=== PATIENT | male | born 1945 | race Caucasian/White ===

== ENCOUNTER 2016-10-06 08:11 | Inpatient (IN) | payer MEDICARE, MEDICAID ==
[~2016-10-06] VITALS: Ht 172.7 cm; Wt 76.2 kg
[~2016-10-06 08:11] MED LIST: ALBU2.5V13 IH; ALBU6.7H INH; ATOR10TA69 PO; DILT180C69 PO; FINA5TAB3 PO; FURO20TA4 PO; LISI2.5T47 PO; SPIR25TA4 PO; TADA20TA31 PO; TAMS0.4C31 PO; TRAM50TA3 PO; TRAZ-129 PO; WARF4TAB40 PO
[2016-10-06] MEDS ORDERED: IPRATROPIUM BROMIDE (0.02%) 0.5MG/2.5ML NEB HHN STA (08:38)
[2016-10-06] MEDS ORDERED: METHYLPREDNISOLONE SOD SUCC 125 MG/2 ML VIAL IV STA (08:38)
[2016-10-06] MEDS ORDERED: ALBUTEROL (0.083%) 2.5MG/3ML NEB HHN STA ×2 (08:38→10:32)
[2016-10-06] MEDS ORDERED: ALBUTEROL (0.5%) 2.5MG/0.5ML NEB HHN ONE (08:50)
[2016-10-06 08:52] LABS: BASOPHILS % 0.5 % (0.0-2.0); HEMATOCRIT. 37.1 % (42.0-52.0); HEMOGLOBIN. 12.7 g/dL (14.0-18.0); LYMPHOCYTES % 13.1 % (20.0-50.0); MEAN CORPUSCULAR HEMOGLOBIN 26.8 pg (28.0-32.0); MEAN CORPUSCULAR VOLUME 78.5 fL (80.0-94.0); MEAN PLATELET VOLUME 8.3 fl (7.4-10.4); MONOCYTES % 5.6 % (2.0-8.0); NEUTROPHILS % 79.8 % (40.0-76.0); PLATELET 146 x1000/uL (130-400); RED BLOOD CELL COUNT 4.72 mill/uL (4.7-6.1); RED CELL DISTRIBUTION WIDTH 12.9 % (11.6-14.6)
[2016-10-06 09:01] LABS: D-DIMER 0.29 mg/L FEU (<0.50); INR 1.5; PROTHROMBIN TIME 15.4 sec (9.4-11.6)
[2016-10-06 09:07] LABS: CARBON DIOXIDE 29 mEq/L (21-32); CHLORIDE 99 mEq/L (98-107)
[2016-10-06 09:09] LABS: TROPONIN I < 0.02 ng/mL (0.00-0.04)
[2016-10-06 09:12] LABS: BG BASE EXCESS 3.1 mmol/L (-2.0-2.0); BG CARBOXYHEMOGLOBIN 0.4 % (0.5-1.5); BG DEOXYHEMOGLOBIN 5.3 % (0.0-5.0); BG HCO3 ACT 28.5 mmol/L (22.0-26.0); BG METHEMOGLOBIN 0.2 % (0.0-1.5); BG OXYGEN SATURATION 94.7 % (92.0-98.5); BG OXYHEMOGLOBIN 94.1 % (94.0-97.0); BG PCO2 46.6 mmHg (35.0-45.0); BG PH 7.404 (7.350-7.450); BG PO2 74.9 mmHg (75.0-100.0); BG SAMPLE SITE RIGHT RADIAL; BG TOTAL HEMOGLOBIN 13.1 g/dL (12.0-18.0); BG VENT MODE ROOM AIR
[2016-10-06] MEDS ORDERED: ASPIRIN 81MG TABLET PO ONE (11:15)
[2016-10-06 13:34] VITALS: BP 109/55
[2016-10-06] MEDS ORDERED: ACETAMINOPHEN 325MG TABLET PO PRN (14:15)
[2016-10-06] MEDS ORDERED: IPRATROPIUM/ALBUTEROL 0.5-3(2.5)MG/3ML NEB INH PRN (14:15)
[2016-10-06] MEDS ORDERED: LORAZEPAM 0.5MG TABLET PO PRN (14:15)
[2016-10-06] MEDS ORDERED: ONDANSETRON HCL 4MG/2ML VIAL IV PRN (14:15)
[2016-10-06] MEDS ORDERED: DOCUSATE SODIUM 100MG CAPSULE PO PRN (14:15)
[2016-10-06] MEDS ORDERED: TRAMADOL 50MG TABLET PO PRN (14:15)
[2016-10-06] MEDS ORDERED: GABA-529 PO (14:40)
[2016-10-06] MEDS ORDERED: MECL-109 PO (14:41)
[2016-10-06] MEDS ORDERED: METF500T4 PO (14:42)
[2016-10-06] MEDS ORDERED: TRAZ-129 PO (14:43)
[2016-10-06] MEDS ORDERED: PREG50CA PO (14:44)
[2016-10-06 16:00] VITALS: BP 117/60
[2016-10-06] MEDS: LISINOPRIL 2.5MG TABLET PO SCH (16:18)
[2016-10-06] MEDS: SILDENAFIL CITRATE 20MG TABLET PO SCH ×2 (16:19→21:17)
[2016-10-06] MEDS: DILTIAZEM HCL 180MG CAPSULE CD 24HR PO SCH ×2 (16:19→21:35)
[2016-10-06] MEDS: FINASTERIDE 5MG TABLET PO SCH (16:19)
[2016-10-06] MEDS: FUROSEMIDE 20MG TABLET PO SCH (16:19)
[2016-10-06] MEDS: SPIRONOLACTONE 25MG TABLET PO SCH (16:20)
[2016-10-06] MEDS: TAMSULOSIN HCL 0.4MG SR CAPSULE PO SCH (16:20)
[2016-10-06] MEDS ORDERED: DEXTROSE 50% WATER 50ML SYRINGE IV PRN ×2 (17:30→22:00)
[2016-10-06] MEDS: BLOOD SUGAR DIAGNOSTIC STRIP TEST SCH ×2 (17:40→21:17)
[2016-10-06] MEDS: WARFARIN SODIUM 4MG TABLET PO SCH (19:05)
[2016-10-06] MEDS: INSULIN LISPRO 100 UNITS/ML SUBCUT SCH ×2 (19:33→21:36)
[2016-10-06 20:00] VITALS: BP 115/54
[2016-10-06] MEDS: TRAZODONE HCL 50MG TABLET PO SCH (21:17)
[2016-10-06] MEDS: ATORVASTATIN CALCIUM 10MG TABLET PO SCH (21:17)
[2016-10-06] MEDS ORDERED: INSULIN DETEMIR UD 100 UNITS/ML SYR SUBCUT NR (23:00)
[2016-10-06 23:30] LABS: CREATINE KINASE 35 IU/L (39-308); CREATINE KINASE MB FRACTION 0.8 ng/mL (0.5-3.6); TROPONIN I < 0.02 ng/mL (0.00-0.04)
[2016-10-07] VITALS: BP_SYST 114; BP_SYST 98; BP_DIAS 56; BP_DIAS 62
[2016-10-07 03:33] LABS: CLARITY URINE CLEAR (CLEAR); COLOR URINE YELLOW (YELLOW); GLUCOSE URINE 3+ (NEGATIVE); KETONES URINE NEGATIVE (NEGATIVE); LEUKOCYTE ESTERASE URINE NEGATIVE (NEGATIVE); NITRITE URINE NEGATIVE (NEGATIVE); OCCULT BLOOD URINE NEGATIVE (NEGATIVE); PH URINE 6.5 (4.5-8.0); PROTEIN URINE NEGATIVE (NEGATIVE); SPECIFIC GRAVITY URINE 1.023 (1.005-1.030)
[2016-10-07 04:00] VITALS: BP 91/52
[2016-10-07] MEDS: BLOOD SUGAR DIAGNOSTIC STRIP TEST SCH ×4 (06:44→21:22)
[2016-10-07] MEDS: SILDENAFIL CITRATE 20MG TABLET PO SCH ×3 (06:48→21:29)
[2016-10-07 08:00] VITALS: BP 112/57
[2016-10-07 08:00] LABS: CREATINE KINASE 39 IU/L (39-308); CREATINE KINASE MB FRACTION 0.7 ng/mL (0.5-3.6); TROPONIN I < 0.02 ng/mL (0.00-0.04)
[2016-10-07] MEDS: LISINOPRIL 2.5MG TABLET PO SCH (09:00)
[2016-10-07] MEDS: DILTIAZEM HCL 180MG CAPSULE CD 24HR PO SCH ×2 (09:00→21:00)
[2016-10-07] MEDS: SPIRONOLACTONE 25MG TABLET PO SCH (09:17)
[2016-10-07] MEDS: TAMSULOSIN HCL 0.4MG SR CAPSULE PO SCH (09:17)
[2016-10-07] MEDS: INSULIN LISPRO 100 UNITS/ML SUBCUT SCH ×4 (09:18→21:00)
[2016-10-07 09:55] LABS: HEMATOCRIT. 35.7 % (42.0-52.0); HEMOGLOBIN. 12.2 g/dL (14.0-18.0); MEAN CORPUSCULAR HEMOGLOBIN 27.1 pg (28.0-32.0); MEAN CORPUSCULAR VOLUME 78.9 fL (80.0-94.0); MEAN PLATELET VOLUME 9.5 fl (7.4-10.4); PLATELET 139 x1000/uL (130-400); RED BLOOD CELL COUNT 4.52 mill/uL (4.7-6.1); RED CELL DISTRIBUTION WIDTH 13.2 % (11.6-14.6)
[2016-10-07 10:11] LABS: CARBON DIOXIDE 22 mEq/L (21-32); CHLORIDE 100 mEq/L (98-107); HDL CHOLESTEROL 48 mg/dL (40-59); LDL CHOLESTEROL 41 mg/dL (5-100); TROPONIN I < 0.02 ng/mL (0.00-0.04)
[2016-10-07 11:51] LABS: T4 FREE 1.35 ng/dL (0.76-1.46)
[2016-10-07 11:51] LABS: INR 1.6
[2016-10-07 12:00] VITALS: BP 106/52
[2016-10-07] MEDS ORDERED: MAGNESIUM 2 G PREMIX 50 ML IV SCH (12:00)
[2016-10-07] MEDS: FUROSEMIDE 20MG TABLET PO SCH (12:47)
[2016-10-07] MEDS: FINASTERIDE 5MG TABLET PO SCH (12:47)
[2016-10-07] MEDS: LEVOFLOXACIN 500MG PREMIX 100 ML IV SCH (15:26)
[2016-10-07 16:00] VITALS: BP 101/46
[2016-10-07] MEDS: WARFARIN SODIUM 4MG TABLET PO SCH (18:11)
[2016-10-07 19:56] VITALS: BP_SYST 107; BP_SYST 96; BP_SYST 99; BP_DIAS 58; BP_DIAS 59; BP_DIAS 62
[2016-10-07] MEDS: ATORVASTATIN CALCIUM 10MG TABLET PO SCH (21:22)
[2016-10-07] MEDS: GUAIFENESIN 600MG ER TABLET PO SCH (21:22)
[2016-10-07] MEDS: TRAZODONE HCL 50MG TABLET PO SCH (21:22)
[2016-10-07] MEDS ORDERED: INSULIN DETEMIR UD 100 UNITS/ML SYR SUBCUT SCH (22:00)
[2016-10-07 22:55] LABS: PLATELET ESTIMATE NORMAL
[2016-10-08] VITALS: BP 99/62
[2016-10-08 04:00] VITALS: BP 117/59
[2016-10-08] MEDS: SILDENAFIL CITRATE 20MG TABLET PO SCH ×2 (05:37→13:41)
[2016-10-08] MEDS: BLOOD SUGAR DIAGNOSTIC STRIP TEST SCH ×2 (05:37→13:29)
[2016-10-08] MEDS: INSULIN LISPRO 100 UNITS/ML SUBCUT SCH ×2 (05:38→13:38)
[2016-10-08 05:58] LABS: PROTHROMBIN TIME 20.6 sec (9.4-11.6)
[2016-10-08 06:28] LABS: HEMATOCRIT. 35.8 % (42.0-52.0); HEMOGLOBIN. 12.3 g/dL (14.0-18.0); MEAN CORPUSCULAR HEMOGLOBIN 26.8 pg (28.0-32.0); MEAN CORPUSCULAR VOLUME 78.1 fL (80.0-94.0); MEAN PLATELET VOLUME 8.9 fl (7.4-10.4); PLATELET 140 x1000/uL (130-400); RED BLOOD CELL COUNT 4.59 mill/uL (4.7-6.1); RED CELL DISTRIBUTION WIDTH 13.1 % (11.6-14.6)
[2016-10-08 07:03] LABS: CARBON DIOXIDE 25 mEq/L (21-32); CHLORIDE 101 mEq/L (98-107)
[2016-10-08 08:00] VITALS: BP_SYST 112; BP_SYST 121; BP_SYST 99; BP_DIAS 63; BP_DIAS 70; BP_DIAS 82
[2016-10-08] MEDS: LISINOPRIL 2.5MG TABLET PO SCH (09:00)
[2016-10-08] MEDS: TAMSULOSIN HCL 0.4MG SR CAPSULE PO SCH (10:16)
[2016-10-08] MEDS: SPIRONOLACTONE 25MG TABLET PO SCH (10:16)
[2016-10-08] MEDS: FUROSEMIDE 20MG TABLET PO SCH (10:17)
[2016-10-08] MEDS: FINASTERIDE 5MG TABLET PO SCH (10:17)
[2016-10-08] MEDS: GUAIFENESIN 600MG ER TABLET PO SCH (10:17)
[2016-10-08] MEDS: DILTIAZEM HCL 180MG CAPSULE CD 24HR PO SCH (10:58)
[2016-10-08 12:00] VITALS: BP 130/79
[2016-10-08] MEDS: LEVOFLOXACIN 500MG PREMIX 100 ML IV SCH (13:37)
[2016-10-08 14:29] LABS: PLATELET ESTIMATE NORMAL
[2016-10-08 15:13] VITALS: BP 127/72
[2016-10-08 16:00] VITALS: BP 114/71
== END 2016-10-08 17:00 | disposition home or self-care (01) | DRG 291 ==
LOC: ER 08:32 → ENRESERV 09:57 → 7WST 12:25 → EDBEDREQ 12:29 → EDBEDREQTM 12:29
PROVIDERS: ADMIT Internal Medicine; ATTEND Internal Medicine Critical Care Medicine
DX: I11.0 Hypertensive heart disease with heart failure (principal); J18.9 Pneumonia, unspecified organism; I49.5 Sick sinus syndrome; I48.2 Chronic atrial fibrillation; E11.9 Type 2 diabetes mellitus without complications; J44.0 Chronic obstructive pulmonary disease with (acute) lower respiratory infection; Z95.2 Presence of prosthetic heart valve; D72.829 Elevated white blood cell count, unspecified; F41.9 Anxiety disorder, unspecified; I50.9 Heart failure, unspecified; R26.9 Unspecified abnormalities of gait and mobility; R07.89 Other chest pain; J20.9 Acute bronchitis, unspecified; W01.0XXA Fall on same level from slipping, tripping and stumbling without subsequent striking against object, initial encounter; M79.606 Pain in leg, unspecified; I25.10 Atherosclerotic heart disease of native coronary artery without angina pectoris; G47.00 Insomnia, unspecified; E78.00 Pure hypercholesterolemia, unspecified; K21.9 Gastro-esophageal reflux disease without esophagitis; K29.70 Gastritis, unspecified, without bleeding; N40.0 Benign prostatic hyperplasia without lower urinary tract symptoms; Z79.01 Long term (current) use of anticoagulants; Z86.73 Personal history of transient ischemic attack (TIA), and cerebral infarction without residual deficits; Z95.0 Presence of cardiac pacemaker; Z95.1 Presence of aortocoronary bypass graft; Z98.49 Cataract extraction status, unspecified eye; Y93.89 Activity, other specified; Y92.89 Other specified places as the place of occurrence of the external cause; Y99.8 Other external cause status; Z79.51 Long term (current) use of inhaled steroids; Z79.899 Other long term (current) drug therapy; Z79.84 Long term (current) use of oral hypoglycemic drugs
CPT/HCPCS: 36415; 36600; 70450; 71010; 72125; 80048; 80053; 80061; 81001; 82375; 82550; 82553; 82805; 82962; 83036; 83735; 83880; 84439; 84443; 84481; 84484; 85025; 85379; 85610; 87040; 87070; 87086; 93005; 93306; 93970; 96374; 99285; J1815; J1956; J2930; J3475; J7050; J7611

== ENCOUNTER 2017-01-24 12:35 | Inpatient (IN) | payer MEDICARE, MEDICAID ==
[~2017-01-24] VITALS: Ht 172.7 cm; Wt 73.9 kg
[~2017-01-24 12:35] MED LIST changes: +GABA-529 PO; +MECL-109 PO; +METF500T4 PO; +PREG50CA PO
[2017-01-24 17:32] LABS: CHLORIDE 107 mEq/L (98-107); PROTHROMBIN TIME 20.7 sec (9.4-11.6)
[2017-01-24 17:38] LABS: CARBON DIOXIDE 26 mEq/L (21-32)
[2017-01-24 17:39] LABS: BASOPHILS % 0.4 % (0.0-2.0); EOSINOPHILS % 1.7 % (0.0-5.0); HEMATOCRIT. 35.4 % (42.0-52.0); LYMPHOCYTES % 20.5 % (20.0-50.0); MEAN CORPUSCULAR HEMOGLOBIN 26.7 pg (28.0-32.0); MEAN CORPUSCULAR VOLUME 79.1 fL (80.0-94.0); MEAN PLATELET VOLUME 8.8 fl (7.4-10.4); MONOCYTES % 6.7 % (2.0-8.0); NEUTROPHILS % 70.7 % (40.0-76.0); PLATELET 127 x1000/uL (130-400); RED BLOOD CELL COUNT 4.48 mill/uL (4.7-6.1); RED CELL DISTRIBUTION WIDTH 13.8 % (11.6-14.6)
[2017-01-24 17:42] LABS: TROPONIN I < 0.02 ng/mL (0.00-0.04)
[2017-01-24 22:41] VITALS: BP 131/87
[2017-01-24 22:46] VITALS: BP 131/87
[2017-01-24] MEDS ORDERED: ALBUTEROL (0.083%) 2.5MG/3ML NEB HHN SCH (23:00)
[2017-01-24] MEDS ORDERED: ACETAMINOPHEN 325MG TABLET PO PRN (23:00)
[2017-01-24] MEDS: FUROSEMIDE 20MG TABLET PO SCH (23:18)
[2017-01-24] MEDS ORDERED: TRAMADOL 50MG TABLET PO PRN (23:23)
[2017-01-25] MEDS: DILTIAZEM HCL 180MG CAPSULE CD 24HR PO SCH ×3 (00:07→21:19)
[2017-01-25] MEDS: TAMSULOSIN HCL 0.4MG SR CAPSULE PO SCH ×2 (00:07→16:56)
[2017-01-25] MEDS: MECLIZINE 25MG TABLET PO SCH ×4 (00:07→16:56)
[2017-01-25] MEDS: TRAZODONE HCL 50MG TABLET PO SCH ×2 (00:07→21:12)
[2017-01-25] MEDS: LISINOPRIL 2.5MG TABLET PO SCH ×2 (00:07→10:56)
[2017-01-25] MEDS: GABAPENTIN 100MG CAPSULE PO SCH ×4 (00:07→16:56)
[2017-01-25] MEDS: FINASTERIDE 5MG TABLET PO SCH ×2 (00:08→10:56)
[2017-01-25] MEDS: ATORVASTATIN CALCIUM 10MG TABLET PO SCH ×2 (00:09→21:11)
[2017-01-25 00:16] VITALS: BP 125/66
[2017-01-25] MEDS ORDERED: DEXTROSE 50% WATER 50ML SYRINGE IV PRN (00:30)
[2017-01-25] MEDS ORDERED: ALBUTEROL (0.083%) 2.5MG/3ML NEB HHN PRN (00:45)
[2017-01-25 04:00] VITALS: BP 118/57
[2017-01-25] MEDS: SODIUM CHLORIDE 0.9% INJ 3ML FLUSH IVF SCH ×3 (05:41→23:30)
[2017-01-25 07:17] LABS: INR 1.9; PROTHROMBIN TIME 20.1 sec (9.4-11.6)
[2017-01-25 07:33] LABS: BASOPHILS % 0.4 % (0.0-2.0); EOSINOPHILS % 2.1 % (0.0-5.0); HEMATOCRIT. 36.8 % (42.0-52.0); HEMOGLOBIN. 12.3 g/dL (14.0-18.0); LYMPHOCYTES % 21.2 % (20.0-50.0); MEAN CORPUSCULAR HEMOGLOBIN 26.5 pg (28.0-32.0); MEAN CORPUSCULAR VOLUME 79.1 fL (80.0-94.0); MEAN PLATELET VOLUME 9.1 fl (7.4-10.4); MONOCYTES % 8.7 % (2.0-8.0); NEUTROPHILS % 67.6 % (40.0-76.0); PLATELET 126 x1000/uL (130-400); RED BLOOD CELL COUNT 4.65 mill/uL (4.7-6.1); RED CELL DISTRIBUTION WIDTH 13.7 % (11.6-14.6)
[2017-01-25] MEDS: BLOOD SUGAR DIAGNOSTIC STRIP TEST SCH ×4 (07:40→21:24)
[2017-01-25 08:00] VITALS: BP 116/62
[2017-01-25 08:33] LABS: CARBON DIOXIDE 24 mEq/L (21-32); CHLORIDE 107 mEq/L (98-107)
[2017-01-25 08:34] LABS: TROPONIN I < 0.02 ng/mL (0.00-0.04)
[2017-01-25] MEDS: PREGABALIN 50 MG CAPSULE PO SCH ×3 (09:23→16:56)
[2017-01-25] MEDS: SPIRONOLACTONE 25MG TABLET PO SCH (09:24)
[2017-01-25] MEDS: FUROSEMIDE 20MG TABLET PO SCH (09:24)
[2017-01-25] MEDS: INSULIN LISPRO 100 UNITS/ML SUBCUT SCH ×4 (09:32→21:27)
[2017-01-25 12:00] VITALS: BP 128/74
[2017-01-25 16:00] VITALS: BP 102/61
[2017-01-25] MEDS ORDERED: WARFARIN SODIUM 4MG TABLET PO SCH (18:00)
[2017-01-25 20:00] VITALS: BP 123/63
[2017-01-25] MEDS ORDERED: TRAZODONE HCL 50MG TABLET PO SCH (21:00)
[2017-01-25] MEDS ORDERED: WARFARIN SODIUM 4MG TABLET PO ONE (22:45)
[2017-01-25] MEDS ORDERED: MECLIZINE 25MG TABLET PO NR (23:45)
[2017-01-25] MEDS ORDERED: MECLIZINE 25MG TABLET PO ONE (23:45)
[2017-01-26] VITALS: BP 109/45
[2017-01-26 04:00] VITALS: BP 117/47
[2017-01-26] MEDS: BLOOD SUGAR DIAGNOSTIC STRIP TEST SCH ×3 (05:55→17:20)
[2017-01-26] MEDS: SODIUM CHLORIDE 0.9% INJ 3ML FLUSH IVF SCH ×2 (05:55→13:28)
[2017-01-26 07:14] LABS: INR 1.9; PROTHROMBIN TIME 20.2 sec (9.4-11.6)
[2017-01-26 07:44] LABS: BASOPHILS % 0.3 % (0.0-2.0); EOSINOPHILS % 1.5 % (0.0-5.0); HEMATOCRIT. 37.7 % (42.0-52.0); HEMOGLOBIN. 12.6 g/dL (14.0-18.0); LYMPHOCYTES % 17.3 % (20.0-50.0); MEAN CORPUSCULAR HEMOGLOBIN 26.5 pg (28.0-32.0); MEAN PLATELET VOLUME 9.2 fl (7.4-10.4); MONOCYTES % 7.7 % (2.0-8.0); NEUTROPHILS % 73.2 % (40.0-76.0); PLATELET 134 x1000/uL (130-400); RED BLOOD CELL COUNT 4.77 mill/uL (4.7-6.1); RED CELL DISTRIBUTION WIDTH 13.3 % (11.6-14.6)
[2017-01-26 08:00] VITALS: BP 124/71
[2017-01-26 08:00] LABS: CHLORIDE 107 mEq/L (98-107)
[2017-01-26 08:10] LABS: CARBON DIOXIDE 24 mEq/L (21-32)
[2017-01-26] MEDS: DILTIAZEM HCL 180MG CAPSULE CD 24HR PO SCH (09:04)
[2017-01-26] MEDS: SPIRONOLACTONE 25MG TABLET PO SCH (09:04)
[2017-01-26] MEDS: PREGABALIN 50 MG CAPSULE PO SCH ×3 (09:04→17:20)
[2017-01-26] MEDS: LISINOPRIL 2.5MG TABLET PO SCH (09:04)
[2017-01-26] MEDS: FUROSEMIDE 20MG TABLET PO SCH (09:04)
[2017-01-26] MEDS: GABAPENTIN 100MG CAPSULE PO SCH ×3 (09:04→17:20)
[2017-01-26] MEDS: MECLIZINE 25MG TABLET PO SCH ×3 (09:05→17:18)
[2017-01-26] MEDS: INSULIN LISPRO 100 UNITS/ML SUBCUT SCH ×3 (09:05→17:20)
[2017-01-26] MEDS: FINASTERIDE 5MG TABLET PO SCH (11:30)
[2017-01-26 12:00] VITALS: BP 110/64
[2017-01-26 16:44] VITALS: BP 108/71
[2017-01-26] MEDS: TAMSULOSIN HCL 0.4MG SR CAPSULE PO SCH (17:20)
[2017-01-26] MEDS ORDERED: WARFARIN SODIUM 5MG TABLET PO SCH (18:00)
== END 2017-01-26 19:12 | disposition home or self-care (01) | DRG 637 ==
LOC: ER 15:02 → 7WST 17:52 → EDBEDREQ 17:58 → ENRESERV 19:38 → CANRESERV 19:38 → ENRESERV 20:09
PROVIDERS: ADMIT Ophthalmology; ATTEND Internal Medicine
DX: E11.649 Type 2 diabetes mellitus with hypoglycemia without coma (principal); G93.41 Metabolic encephalopathy; E78.00 Pure hypercholesterolemia, unspecified; I48.91 Unspecified atrial fibrillation; I10 Essential (primary) hypertension; J45.909 Unspecified asthma, uncomplicated; Z86.73 Personal history of transient ischemic attack (TIA), and cerebral infarction without residual deficits; Z95.0 Presence of cardiac pacemaker; Z79.899 Other long term (current) drug therapy; Z79.01 Long term (current) use of anticoagulants
CPT/HCPCS: 36415; 70450; 71010; 80048; 80053; 82962; 83690; 84484; 85025; 85610; 93005; 99285; J1815; J8597

== ENCOUNTER 2017-08-31 08:36 | Inpatient (IN) | payer MEDICARE, MEDICAID ==
[~2017-08-31] VITALS: Ht 172.7 cm; Wt 77.6 kg
[~2017-08-31 08:36] MED LIST changes: -METF500T4 PO; +METF500T6 PO; -SPIR25TA4 PO; +SPIR25TA6 PO
[2017-08-31] MEDS ORDERED: OMEP10SU2 PO (08:51)
[2017-08-31] MEDS ORDERED: SULF500T8 PO ×2 (08:51→22:35)
[2017-08-31] MEDS ORDERED: ASPIRIN 81MG TABLET PO ONE (09:15)
[2017-08-31] MEDS: NITROGLYCERIN 0.4MG TABLET SL SL PRN ×2 (09:42→09:43)
[2017-08-31 10:44] LABS: BASOPHILS % 0.4 % (0.0-2.0); EOSINOPHILS % 0.9 % (0.0-5.0); HEMATOCRIT. 28.2 % (42.0-52.0); HEMOGLOBIN. 9.3 g/dL (14.0-18.0); LYMPHOCYTES % 10.4 % (20.0-50.0); MEAN CORPUSCULAR HEMOGLOBIN 25.9 pg (28.0-32.0); MEAN CORPUSCULAR VOLUME 78.3 fL (80.0-94.0); NEUTROPHILS % 79.3 % (40.0-76.0); PLATELET 171 x1000/uL (130-400); RED CELL DISTRIBUTION WIDTH 16.4 % (11.6-14.6)
[2017-08-31 10:50] LABS: CHLORIDE 99 mEq/L (98-107)
[2017-08-31] MEDS ORDERED: METHYLPREDNISOLONE SOD SUCC 125 MG/2 ML VIAL IV ONE (12:30)
[2017-08-31] MEDS ORDERED: CLONIDINE 0.1MG TABLET PO PRN (14:45)
[2017-08-31] MEDS ORDERED: IPRATROPIUM/ALBUTEROL 0.5-3(2.5)MG/3ML NEB INH PRN (14:45)
[2017-08-31] MEDS ORDERED: ACETAMINOPHEN 650MG SUPP PR PRN (14:45)
[2017-08-31] MEDS ORDERED: ACETAMINOPHEN 325MG TABLET PO PRN (14:45)
[2017-08-31 15:00] VITALS: BP 134/76
[2017-08-31] MEDS ORDERED: ONDANSETRON 4MG ODT PO PRN (15:00)
[2017-08-31] MEDS ORDERED: POTASSIUM CHLORIDE 20MEQ TABLET SR PO NR (15:00)
[2017-08-31 15:38] LABS: TOTAL IRON BINDING CAPACITY 330 ug/dL (250-450)
[2017-08-31] MEDS: SPIRONOLACTONE 25MG TABLET PO SCH (16:05)
[2017-08-31] MEDS: LISINOPRIL 2.5MG TABLET PO SCH (16:05)
[2017-08-31] MEDS ORDERED: MECLIZINE 25MG TABLET PO PRN (17:00)
[2017-08-31] MEDS ORDERED: DEXTROSE 50% WATER 50ML SYRINGE IV PRN (17:00)
[2017-08-31] MEDS ORDERED: HYDROCODONE/ACETAMINOPHEN 5/325MG TABLET PO PRN (17:00)
[2017-08-31 17:20] LABS: INR 1.3; PROTHROMBIN TIME 13.4 sec (9.4-11.6)
[2017-08-31] MEDS: FUROSEMIDE 100MG/10ML VIAL IVP SCH (17:31)
[2017-08-31] MEDS: BLOOD SUGAR DIAGNOSTIC STRIP TEST SCH ×2 (17:31→21:08)
[2017-08-31] MEDS: INSULIN LISPRO 100 UNITS/ML SUBCUT SCH ×2 (17:51→21:13)
[2017-08-31] MEDS ORDERED: WARFARIN SODIUM 5MG TABLET PO NR (18:00)
[2017-08-31 20:00] VITALS: BP 135/99
[2017-08-31] MEDS ORDERED: TEMAZEPAM 15MG CAPSULE PO PRN (20:45)
[2017-08-31] MEDS: DOCUSATE SODIUM 100MG CAPSULE PO SCH (21:15)
[2017-08-31] MEDS: DILTIAZEM HCL 90MG CAPSULE SR 12HR PO SCH (21:15)
[2017-08-31] MEDS ORDERED: TRAZ-129 PO (22:35)
[2017-08-31] MEDS ORDERED: OMEP40CA34 PO (22:35)
[2017-08-31] MEDS ORDERED: FURO20TA4 PO (22:35)
[2017-08-31] MEDS ORDERED: TRAM50TA PO (22:35)
[2017-08-31] MEDS ORDERED: ATOR10TA69 PO (22:35)
[2017-08-31] MEDS ORDERED: TAMS0.4C31 PO (22:35)
[2017-08-31] MEDS ORDERED: LYR25 PO (22:35)
[2017-08-31] MEDS ORDERED: [UNRECOGNIZED DRUG - OTHER] PO (22:35)
[2017-08-31] MEDS ORDERED: METF500T6 PO (22:35)
[2017-08-31] MEDS ORDERED: WARF4TAB71 PO (22:35)
[2017-08-31] MEDS ORDERED: LISI-650 PO (22:35)
[2017-08-31] MEDS ORDERED: SPIR25TA6 PO (22:35)
[2017-08-31] MEDS ORDERED: MECL-109 PO (22:35)
[2017-08-31] MEDS ORDERED: FINA5TAB11 PO (22:35)
[2017-09-01] VITALS: BP 119/70
[2017-09-01] MEDS ORDERED: DILTIAZEM HCL 60MG TABLET PO SCH (00:15)
[2017-09-01 00:23] LABS: CREATINE KINASE 75 IU/L (39-308)
[2017-09-01 00:24] LABS: CREATINE KINASE MB FRACTION 2.4 ng/mL (0.5-3.6)
[2017-09-01] MEDS: TAMSULOSIN HCL 0.4MG SR CAPSULE PO SCH ×2 (00:31→09:02)
[2017-09-01 04:00] VITALS: BP 117/81
[2017-09-01] MEDS: BLOOD SUGAR DIAGNOSTIC STRIP TEST SCH ×2 (05:59→11:45)
[2017-09-01] MEDS: INSULIN LISPRO 100 UNITS/ML SUBCUT SCH ×2 (06:10→13:15)
[2017-09-01 06:42] LABS: BASOPHILS % 0.1 % (0.0-2.0); HEMATOCRIT. 28.7 % (42.0-52.0); HEMOGLOBIN. 9.6 g/dL (14.0-18.0); LYMPHOCYTES % 9.1 % (20.0-50.0); MEAN CORPUSCULAR HEMOGLOBIN 25.9 pg (28.0-32.0); MEAN CORPUSCULAR VOLUME 77.4 fL (80.0-94.0); MEAN PLATELET VOLUME 9.6 fl (7.4-10.4); MONOCYTES % 6.8 % (2.0-8.0); PLATELET 188 x1000/uL (130-400); RED BLOOD CELL COUNT 3.71 mill/uL (4.7-6.1); RED CELL DISTRIBUTION WIDTH 16.4 % (11.6-14.6)
[2017-09-01 06:44] LABS: D-DIMER 0.34 mg/L FEU (<0.50); INR 1.4; PROTHROMBIN TIME 15.1 sec (9.4-11.6)
[2017-09-01 07:03] LABS: CHLORIDE 97 mEq/L (98-107)
[2017-09-01 07:14] LABS: LDL CHOLESTEROL 42 mg/dL (5-100)
[2017-09-01 07:15] LABS: CREATINE KINASE 85 IU/L (39-308); CREATINE KINASE MB FRACTION 2.9 ng/mL (0.5-3.6)
[2017-09-01 07:16] LABS: HDL CHOLESTEROL 46 mg/dL (40-59)
[2017-09-01 08:00] VITALS: BP 124/61
[2017-09-01] MEDS ORDERED: FUROSEMIDE 40MG/4ML VIAL IVP SCH (09:00)
[2017-09-01] MEDS ORDERED: FINASTERIDE 5MG TABLET PO SCH (09:00)
[2017-09-01] MEDS ORDERED: POTASSIUM CHLORIDE 20MEQ TABLET SR PO SCH (09:00)
[2017-09-01] MEDS: FUROSEMIDE 100MG/10ML VIAL IVP SCH (09:01)
[2017-09-01] MEDS: DOCUSATE SODIUM 100MG CAPSULE PO SCH (09:02)
[2017-09-01] MEDS: DILTIAZEM HCL 90MG CAPSULE SR 12HR PO SCH (09:04)
[2017-09-01] MEDS: SPIRONOLACTONE 25MG TABLET PO SCH (09:04)
[2017-09-01] MEDS ORDERED: MAGNESIUM 1 G PREMIX 100 ML IV SCH (12:00)
[2017-09-01] MEDS: LISINOPRIL 2.5MG TABLET PO SCH (13:21)
[2017-09-01 16:00] VITALS: BP 123/61
[2017-09-01 16:08] VITALS: BP 123/61
[2017-09-01] MEDS ORDERED: WARFARIN SODIUM 5MG TABLET PO NR (18:00)
== END 2017-09-01 16:45 | disposition home or self-care (01) | DRG 291 ==
LOC: ER 09:32 → EDBEDREQ 12:50 → ENRESERV 13:22 → OBSVTOIN 14:30 → INTOOBSV 14:30 → 5WST 14:30 → EDBEDREQ 14:31
PROVIDERS: ADMIT Internal Medicine; ATTEND Internal Medicine
DX: I11.0 Hypertensive heart disease with heart failure (principal); G93.49 Other encephalopathy; D68.59 Other primary thrombophilia; D64.9 Anemia, unspecified; I50.33 Acute on chronic diastolic (congestive) heart failure; E66.9 Obesity, unspecified; E78.00 Pure hypercholesterolemia, unspecified; E78.5 Hyperlipidemia, unspecified; E87.6 Hypokalemia; I48.2 Chronic atrial fibrillation; I49.5 Sick sinus syndrome; K21.9 Gastro-esophageal reflux disease without esophagitis; K29.70 Gastritis, unspecified, without bleeding; N40.0 Benign prostatic hyperplasia without lower urinary tract symptoms; G90.8 Other disorders of autonomic nervous system; J44.9 Chronic obstructive pulmonary disease, unspecified; E11.65 Type 2 diabetes mellitus with hyperglycemia; I35.9 Nonrheumatic aortic valve disorder, unspecified; Z86.73 Personal history of transient ischemic attack (TIA), and cerebral infarction without residual deficits; Z95.0 Presence of cardiac pacemaker; Z95.3 Presence of xenogenic heart valve; Z79.01 Long term (current) use of anticoagulants; Z79.899 Other long term (current) drug therapy; Z68.26 Body mass index [BMI] 26.0-26.9, adult
CPT/HCPCS: 36415; 70450; 71045; 80053; 80061; 82270; 82550; 82553; 82962; 83540; 83550; 83735; 83880; 84443; 84484; 85025; 85379; 85610; 93005; 93306; 93880; 93970; 96374; 97162; 99285; G0378; J1815; J1940; J2930; J3475; Q0162

== ENCOUNTER 2017-09-03 04:16 | Observation (INO) | payer MEDICARE, MEDICAID ==
[~2017-09-03] VITALS: Ht 175.3 cm; Wt 72.6 kg
[~2017-09-03 04:16] MED LIST changes: +DILT180C66 PO; -DILT180C69 PO; +FINA5TAB11 PO; -FINA5TAB3 PO; +LISI-650 PO; -LISI2.5T47 PO; +LYR25 PO; +OMEP40CA34 PO; -PREG50CA PO; +SULF500T8 PO; +TRAM50TA PO; -TRAM50TA3 PO; -TRAZ-129 PO; +TRAZ-212 PO; -WARF4TAB40 PO; +[UNRECOGNIZED DRUG - OTHER] PO
[2017-09-03] MEDS ORDERED: SODIUM CHLORIDE 0.9% 1,000 ML IV ONE (06:30)
[2017-09-03] MEDS ORDERED: ONDANSETRON HCL 4MG/2ML VIAL IV STA (06:30)
[2017-09-03] MEDS ORDERED: MORPHINE SULFATE 4 MG/ML CPJ (NOT FOR IM USE) IV STA (06:30)
[2017-09-03 07:10] LABS: BASOPHILS % 0.3 % (0.0-2.0); HEMATOCRIT. 28.1 % (42.0-52.0); HEMOGLOBIN. 9.3 g/dL (14.0-18.0); LYMPHOCYTES % 11.1 % (20.0-50.0); MEAN CORPUSCULAR HEMOGLOBIN 25.5 pg (28.0-32.0); MEAN CORPUSCULAR VOLUME 77.3 fL (80.0-94.0); MEAN PLATELET VOLUME 8.7 fl (7.4-10.4); MONOCYTES % 8.2 % (2.0-8.0); NEUTROPHILS % 79.4 % (40.0-76.0); PLATELET 191 x1000/uL (130-400); RED BLOOD CELL COUNT 3.64 mill/uL (4.7-6.1); RED CELL DISTRIBUTION WIDTH 16.4 % (11.6-14.6)
[2017-09-03 07:16] LABS: CHLORIDE 103 mEq/L (98-107)
[2017-09-03 07:19] LABS: INR 2.1; PARTIAL THROMBOPLASTIN TIME 31.7 sec (23.4-31.0); PROTHROMBIN TIME 21.4 sec (9.4-11.6)
[2017-09-03] MEDS ORDERED: SODIUM CHLORIDE 0.9% 1000ML BAG (SEPSIS BOLUS) IV ONE (08:15)
[2017-09-03] MEDS ORDERED: LEVOFLOXACIN 750MG PREMIX 150 ML IV ONE (08:15)
[2017-09-03 09:05] LABS: CLARITY URINE CLEAR (CLEAR); COLOR URINE YELLOW (YELLOW); KETONES URINE NEGATIVE (NEGATIVE); LEUKOCYTE ESTERASE URINE NEGATIVE (NEGATIVE); NITRITE URINE NEGATIVE (NEGATIVE); OCCULT BLOOD URINE NEGATIVE (NEGATIVE); PH URINE 7.5 (4.5-8.0); PROTEIN URINE NEGATIVE (NEGATIVE); SPECIFIC GRAVITY URINE 1.013 (1.005-1.030)
[2017-09-03 10:10] VITALS: BP 150/71
[2017-09-03 10:34] VITALS: BP 150/71
[2017-09-03 12:00] VITALS: BP 142/85
[2017-09-03] MEDS ORDERED: DIPHENHYDRAMINE 50MG/ML VIAL IV PRN (12:30)
[2017-09-03] MEDS ORDERED: DEXTROSE 50% WATER 50ML SYRINGE IV PRN (12:30)
[2017-09-03] MEDS ORDERED: ONDANSETRON HCL 4MG/2ML VIAL IV PRN (12:30)
[2017-09-03] MEDS ORDERED: ACETAMINOPHEN 325MG TABLET PO PRN (12:30)
[2017-09-03] MEDS ORDERED: IPRATROPIUM/ALBUTEROL 0.5-3(2.5)MG/3ML NEB INH PRN (12:30)
[2017-09-03] MEDS ORDERED: NA PHOS,M-B/NA PHOS,DI-BA ENEMA 118ML PR PRN (12:30)
[2017-09-03] MEDS: BLOOD SUGAR DIAGNOSTIC STRIP TEST SCH ×2 (12:43→17:29)
[2017-09-03] MEDS ORDERED: MECLIZINE 25MG TABLET PO PRN (12:45)
[2017-09-03] MEDS ORDERED: DILTIAZEM HCL 60MG TABLET PO SCH (12:45)
[2017-09-03] MEDS: HYDROCODONE/ACETAMINOPHEN 5/325MG TABLET PO PRN ×2 (12:56→17:44)
[2017-09-03] MEDS: INSULIN LISPRO 100 UNITS/ML SUBCUT SCH ×2 (12:57→17:46)
[2017-09-03] MEDS ORDERED: FINASTERIDE 5MG TABLET PO SCH (13:00)
[2017-09-03] MEDS ORDERED: TAMSULOSIN HCL 0.4MG SR CAPSULE PO SCH (13:00)
[2017-09-03] MEDS ORDERED: HALOPERIDOL 0.5MG TABLET PO PRN (13:00)
[2017-09-03 16:00] VITALS: BP 106/55
[2017-09-03] MEDS ORDERED: FUROSEMIDE 40MG/4ML VIAL IVP SCH (17:15)
[2017-09-03] MEDS ORDERED: WARFARIN SODIUM 5MG TABLET PO NR (18:00)
[2017-09-03] MEDS ORDERED: METFORMIN HCL 500MG TABLET PO SCH (18:10)
[2017-09-03 19:19] VITALS: BP 106/55
[2017-09-03 20:00] VITALS: BP 132/69
[2017-09-03] MEDS ORDERED: DILTIAZEM HCL 180MG CAPSULE CD 24HR PO SCH (21:00)
[2017-09-03] MEDS ORDERED: TRAZODONE HCL 50MG TABLET PO SCH (21:00)
[2017-09-03] MEDS ORDERED: ATORVASTATIN CALCIUM 10MG TABLET PO SCH (21:00)
[2017-09-04] MEDS ORDERED: OMEPRAZOLE 20MG CAPSULE EXTENDED RELEASE PO SCH (07:40)
[2017-09-04] MEDS ORDERED: SPIRONOLACTONE 25MG TABLET PO SCH (09:00)
== END 2017-09-03 21:32 ==
LOC: ER 04:16 → EDBEDREQ 09:01 → EDBEDREQTM 09:01 → ENRESERV 09:13 → INTOOBSV 09:37 → 7WST 09:37 → EDBEDREQ 09:39 → EDBEDREQTM 09:39 → SUPCPDRO 10:40
PROVIDERS: ADMIT Internal Medicine; ATTEND Internal Medicine
DX: R10.9 Unspecified abdominal pain (principal); I11.0 Hypertensive heart disease with heart failure; I50.33 Acute on chronic diastolic (congestive) heart failure; G93.49 Other encephalopathy; G47.00 Insomnia, unspecified; D68.59 Other primary thrombophilia; E11.9 Type 2 diabetes mellitus without complications; E66.9 Obesity, unspecified; E78.00 Pure hypercholesterolemia, unspecified; E78.5 Hyperlipidemia, unspecified; F41.9 Anxiety disorder, unspecified; I48.91 Unspecified atrial fibrillation; N40.0 Benign prostatic hyperplasia without lower urinary tract symptoms; J45.909 Unspecified asthma, uncomplicated; Z79.01 Long term (current) use of anticoagulants; Z90.49 Acquired absence of other specified parts of digestive tract; Z91.19 Patient's noncompliance with other medical treatment and regimen; Z95.2 Presence of prosthetic heart valve; Z86.73 Personal history of transient ischemic attack (TIA), and cerebral infarction without residual deficits; Z95.0 Presence of cardiac pacemaker; Z79.899 Other long term (current) drug therapy; Z68.23 Body mass index [BMI] 23.0-23.9, adult
CPT/HCPCS: 36415; 71045; 74176; 80053; 81003; 82962; 83605; 83690; 83880; 84484; 85025; 85610; 85730; 87040; 87086; 93005; 94640; 96361; 96365; 96372; 96375; 97162; 99285; A4215; G0378; J1815; J1940; J1956; J2270; J2405; J7030; J7620

== ENCOUNTER 2018-03-08 08:52 | Inpatient (IN) | payer MEDICARE, MEDICAID ==
[~2018-03-08] VITALS: Ht 167.6 cm; Wt 75.8 kg
[~2018-03-08 08:52] MED LIST changes: -ALBU6.7H INH; -GABA-529 PO; -LISI-650 PO; -LYR25 PO; +METF-414 PO; -METF500T6 PO; -SULF500T8 PO; -TADA20TA31 PO; -[UNRECOGNIZED DRUG - OTHER] PO
[2018-03-08] MEDS ORDERED: FENTANYL CITRATE/PF 50MCG/ML 2ML VIAL IV ONE (11:15)
[2018-03-08] MEDS ORDERED: ONDANSETRON HCL 4MG/2ML INJ IV ONE (11:15)
[2018-03-08 12:25] LABS: CHLORIDE 93 mEq/L (98-107)
[2018-03-08 12:26] LABS: BASOPHILS % 0.1 % (0.0-2.0); EOSINOPHILS % 0.1 % (0.0-5.0); HEMATOCRIT. 35.6 % (42.0-52.0); HEMOGLOBIN. 11.6 g/dL (14.0-18.0); LYMPHOCYTES % 10.2 % (20.0-50.0); MEAN CORPUSCULAR HEMOGLOBIN 23.9 pg (28.0-32.0); MEAN CORPUSCULAR VOLUME 73.1 fL (80.0-94.0); MEAN PLATELET VOLUME 8.6 fl (7.4-10.4); MONOCYTES % 10.5 % (2.0-8.0); NEUTROPHILS % 79.1 % (40.0-76.0); PLATELET 184 x1000/uL (130-400); RED BLOOD CELL COUNT 4.87 mill/uL (4.7-6.1); RED CELL DISTRIBUTION WIDTH 18.9 % (11.6-14.6)
[2018-03-08 12:38] LABS: PROTHROMBIN TIME 88.8 sec (9.1-11.1)
[2018-03-08 12:47] LABS: INR 9.2
[2018-03-08 13:11] LABS: CLARITY URINE CLEAR (CLEAR); COLOR URINE YELLOW (YELLOW); KETONES URINE NEGATIVE (NEGATIVE); LEUKOCYTE ESTERASE URINE NEGATIVE (NEGATIVE); NITRITE URINE NEGATIVE (NEGATIVE); OCCULT BLOOD URINE NEGATIVE (NEGATIVE); PH URINE 6.5 (4.5-8.0); PROTEIN URINE NEGATIVE (NEGATIVE)
[2018-03-08] MEDS ORDERED: PHYTONADIONE 10MG/ML AMP SUBCUT NR (17:00)
[2018-03-08] MEDS ORDERED: LYR25 MT (18:15)
[2018-03-08] MEDS ORDERED: WARF-53 PO (18:15)
[2018-03-08] MEDS ORDERED: SULF500T8 PO (18:15)
[2018-03-08] MEDS ORDERED: CARV12.545 PO (18:15)
[2018-03-08] MEDS ORDERED: OMEP40CA34 PO (18:15)
[2018-03-08] MEDS ORDERED: POTA-79 PO (18:15)
[2018-03-08] MEDS ORDERED: INSNPH SUBCUT (18:15)
[2018-03-08] MEDS ORDERED: CLONIDINE 0.1MG TABLET PO PRN (19:00)
[2018-03-08] MEDS ORDERED: ONDANSETRON HCL 4MG/2ML INJ IV PRN (19:00)
[2018-03-08] MEDS ORDERED: IPRATROPIUM/ALBUTEROL 0.5-3(2.5)MG/3ML NEB INH PRN (19:00)
[2018-03-08] MEDS ORDERED: ACETAMINOPHEN 650MG SUPP PR PRN (19:00)
[2018-03-08] MEDS ORDERED: ACETAMINOPHEN 650MG/20.3ML UDC GT PRN (19:00)
[2018-03-08] MEDS ORDERED: DOCUSATE SODIUM 100MG CAPSULE PO PRN (19:00)
[2018-03-08] MEDS ORDERED: LORAZEPAM 0.5MG TABLET PO PRN (19:00)
[2018-03-08] MEDS ORDERED: MAGNESIUM/ALUMINUM HYDROXIDE/SIMETHICONE 30ML UDC PO PRN (19:00)
[2018-03-08] MEDS ORDERED: NA PHOS,M-B/NA PHOS,DI-BA ENEMA 118ML PR PRN (19:00)
[2018-03-08] MEDS ORDERED: GUAIFENESIN 200MG/10ML SUGAR FREE UDC PO PRN (19:00)
[2018-03-08] MEDS ORDERED: DIPHENHYDRAMINE 50MG/ML VIAL IV PRN (19:00)
[2018-03-08] MEDS ORDERED: DEXTROSE 50% WATER 50ML SYRINGE IV PRN (19:00)
[2018-03-08] MEDS ORDERED: MORPHINE SULFATE 4 MG/ML CPJ (NOT FOR IM USE) IV ONE (19:15)
[2018-03-08] MEDS ORDERED: INSULIN LISPRO 100 UNITS/ML SUBCUT NR (22:00)
[2018-03-08 22:20] VITALS: BP 112/84
[2018-03-08] MEDS: BLOOD SUGAR DIAGNOSTIC STRIP TEST SCH (22:30)
[2018-03-08] MEDS: INSULIN LISPRO 100 UNITS/ML SUBCUT SCH (22:30)
[2018-03-08 23:00] VITALS: BP 112/84
[2018-03-09] MEDS: IPRATROPIUM/ALBUTEROL 0.5-3(2.5)MG/3ML NEB HHN SCH ×5 (00:05→21:16)
[2018-03-09 00:06] VITALS: BP 114/69
[2018-03-09] MEDS: HYDROCODONE/ACETAMINOPHEN 5/325MG TABLET PO PRN ×4 (01:27→20:52)
[2018-03-09 04:00] VITALS: BP 99/38
[2018-03-09 06:19] LABS: BASOPHILS % 0.2 % (0.0-2.0); EOSINOPHILS % 0.2 % (0.0-5.0); HEMATOCRIT. 34.5 % (42.0-52.0); HEMOGLOBIN. 11.3 g/dL (14.0-18.0); LYMPHOCYTES % 8.1 % (20.0-50.0); MONOCYTES % 10.1 % (2.0-8.0); NEUTROPHILS % 81.4 % (40.0-76.0); PLATELET 167 x1000/uL (130-400); RED BLOOD CELL COUNT 4.72 mill/uL (4.7-6.1); RED CELL DISTRIBUTION WIDTH 18.3 % (11.6-14.6)
[2018-03-09] MEDS: BLOOD SUGAR DIAGNOSTIC STRIP TEST SCH ×4 (06:21→20:41)
[2018-03-09 06:31] LABS: CHLORIDE 96 mEq/L (98-107)
[2018-03-09 06:46] LABS: LDL CHOLESTEROL 42 mg/dL (5-100)
[2018-03-09 06:48] LABS: T4 FREE 1.51 ng/dL (0.76-1.46)
[2018-03-09 06:49] LABS: HDL CHOLESTEROL 21 mg/dL (40-59)
[2018-03-09] MEDS: INSULIN LISPRO 100 UNITS/ML SUBCUT SCH ×4 (07:50→20:53)
[2018-03-09 08:00] VITALS: BP 110/74
[2018-03-09 10:11] LABS: INR 3.9; PROTHROMBIN TIME 38.4 sec (9.1-11.1)
[2018-03-09 12:00] VITALS: BP 118/76
[2018-03-09] MEDS ORDERED: MEDICATION NOT ON FORMULARY EA (Trazodone Hcl 50 MG) PO PRN (14:00)
[2018-03-09] MEDS ORDERED: MEDICATION NOT ON FORMULARY EA (Meclizine Hcl 25 MG) PO PRN (14:00)
[2018-03-09] MEDS ORDERED: MECLIZINE 25MG TABLET PO PRN (14:15)
[2018-03-09] MEDS ORDERED: TRAZODONE HCL 50MG TABLET PO PRN (14:15)
[2018-03-09] MEDS: PANTOPRAZOLE SODIUM 40 MG/VIAL IV SCH (15:18)
[2018-03-09] MEDS: CARVEDILOL 3.125 MG TABLET PO SCH ×2 (15:19→20:51)
[2018-03-09 16:00] VITALS: BP 120/78
[2018-03-09] MEDS ORDERED: MEDICATION NOT ON FORMULARY EA (Metformin Hcl 500 MG) PO SCH (17:00)
[2018-03-09] MEDS: PREGABALIN 25MG CAPSULE PO SCH (17:39)
[2018-03-09] MEDS: METFORMIN HCL 500MG TABLET PO SCH (17:39)
[2018-03-09 20:49] VITALS: BP 99/65
[2018-03-10 00:31] VITALS: BP 108/71
[2018-03-10] MEDS: IPRATROPIUM/ALBUTEROL 0.5-3(2.5)MG/3ML NEB HHN SCH ×4 (01:16→15:30)
[2018-03-10] MEDS: HYDROCODONE/ACETAMINOPHEN 5/325MG TABLET PO PRN ×4 (01:26→20:23)
[2018-03-10 04:00] VITALS: BP 115/70
[2018-03-10 08:01] LABS: HEMATOCRIT 38.8 % (42.0-52.0); HEMOGLOBIN 12.7 g/dL (14.0-18.0); MEAN CORPUSCULAR HEMOGLOBIN 23.9 pg (28.0-32.0); MEAN CORPUSCULAR VOLUME 73.1 fL (80.0-94.0); PLATELET 184 x1000/uL (130-400); RED BLOOD CELL COUNT 5.31 mill/uL (4.7-6.1); RED CELL DISTRIBUTION WIDTH 18.2 % (11.6-14.6)
[2018-03-10 08:08] LABS: INR 1.6; PROTHROMBIN TIME 15.5 sec (9.1-11.1)
[2018-03-10 08:23] VITALS: BP 113/63
[2018-03-10] MEDS: INSULIN LISPRO 100 UNITS/ML SUBCUT SCH ×4 (08:46→20:32)
[2018-03-10] MEDS: PANTOPRAZOLE SODIUM 40 MG/VIAL IV SCH (08:47)
[2018-03-10] MEDS: FUROSEMIDE 20MG TABLET PO SCH (08:48)
[2018-03-10] MEDS: PREGABALIN 25MG CAPSULE PO SCH ×3 (08:48→17:35)
[2018-03-10] MEDS: CARVEDILOL 3.125 MG TABLET PO SCH ×2 (08:48→20:23)
[2018-03-10] MEDS: FINASTERIDE 5MG TABLET PO SCH (08:48)
[2018-03-10] MEDS: TAMSULOSIN HCL 0.4MG SR CAPSULE PO SCH (08:48)
[2018-03-10] MEDS: METFORMIN HCL 500MG TABLET PO SCH ×2 (08:49→17:35)
[2018-03-10] MEDS ORDERED: MEDICATION NOT ON FORMULARY EA (Finasteride 5 MG) PO SCH (09:00)
[2018-03-10] MEDS ORDERED: MEDICATION NOT ON FORMULARY EA (Furosemide 20 MG) PO SCH (09:00)
[2018-03-10 12:22] VITALS: BP 102/52
[2018-03-10] MEDS: BLOOD SUGAR DIAGNOSTIC STRIP TEST SCH ×3 (12:34→20:24)
[2018-03-10] MEDS: ENOXAPARIN 80MG/0.8ML SYR SUBCUT SCH (12:50)
[2018-03-10] MEDS ORDERED: DIGOXIN 500MCG/2ML AMP IV NR (13:45)
[2018-03-10] MEDS ORDERED: VANCOMYCIN 1500MG in DEXTROSE 5% WATER 250ML IV NR (17:00)
[2018-03-10] MEDS ORDERED: INSULIN GLARGINE UD 100 UNITS/ML SYR SUBCUT NR (17:00)
[2018-03-10 17:14] VITALS: BP 103/60
[2018-03-10] MEDS ORDERED: WARFARIN SODIUM 5MG TABLET PO NR (18:00)
[2018-03-10] MEDS: PIPERACILLIN/TAZ 3.375G PREMIX 50 ML IV SCH (19:23)
[2018-03-10 20:36] VITALS: BP 100/52
[2018-03-11] VITALS: BP 102/63
[2018-03-11] MEDS: ENOXAPARIN 80MG/0.8ML SYR SUBCUT SCH ×3 (00:17→23:09)
[2018-03-11] MEDS: PIPERACILLIN/TAZ 3.375G PREMIX 50 ML IV SCH ×4 (00:17→17:10)
[2018-03-11] MEDS: IPRATROPIUM/ALBUTEROL 0.5-3(2.5)MG/3ML NEB HHN SCH ×6 (01:48→21:54)
[2018-03-11 04:00] VITALS: BP 113/63
[2018-03-11] MEDS ORDERED: VANCOMYCIN 750 MG PREMIX 150 ML IV SCH (04:00)
[2018-03-11] MEDS: HYDROCODONE/ACETAMINOPHEN 5/325MG TABLET PO PRN ×3 (04:10→23:15)
[2018-03-11] MEDS: BLOOD SUGAR DIAGNOSTIC STRIP TEST SCH ×4 (06:31→20:57)
[2018-03-11 06:36] LABS: HEMATOCRIT 35.7 % (42.0-52.0); HEMOGLOBIN 11.8 g/dL (14.0-18.0); MEAN CORPUSCULAR HEMOGLOBIN 24.6 pg (28.0-32.0); MEAN CORPUSCULAR VOLUME 74.4 fL (80.0-94.0); PLATELET 150 x1000/uL (130-400); RED CELL DISTRIBUTION WIDTH 17.7 % (11.6-14.6)
[2018-03-11 06:44] LABS: INR 1.4; PROTHROMBIN TIME 13.8 sec (9.1-11.1)
[2018-03-11 08:00] VITALS: BP 91/57
[2018-03-11] MEDS: PANTOPRAZOLE SODIUM 40 MG/VIAL IV SCH (08:58)
[2018-03-11] MEDS: PREGABALIN 25MG CAPSULE PO SCH ×3 (08:59→17:10)
[2018-03-11] MEDS: FUROSEMIDE 20MG TABLET PO SCH (08:59)
[2018-03-11] MEDS: TAMSULOSIN HCL 0.4MG SR CAPSULE PO SCH (08:59)
[2018-03-11] MEDS: FINASTERIDE 5MG TABLET PO SCH (08:59)
[2018-03-11] MEDS: METFORMIN HCL 500MG TABLET PO SCH ×2 (08:59→18:34)
[2018-03-11] MEDS: CARVEDILOL 3.125 MG TABLET PO SCH ×2 (09:00→21:05)
[2018-03-11] MEDS: INSULIN LISPRO 100 UNITS/ML SUBCUT SCH ×4 (09:01→20:57)
[2018-03-11] MEDS: SODIUM CHLORIDE 0.9% 1,000 ML IV SCH ×2 (11:24→23:10)
[2018-03-11 12:00] VITALS: BP 94/57
[2018-03-11] MEDS: DILTIAZEM HCL 30MG TABLET PO SCH ×2 (14:00→22:05)
[2018-03-11 16:00] VITALS: BP 103/91
[2018-03-11] MEDS ORDERED: CEFTRIAXONE 2 G PREMIX 50 ML IV SCH (18:00)
[2018-03-11] MEDS ORDERED: WARFARIN SODIUM 7.5MG TABLET PO SCH (18:00)
[2018-03-11 20:00] VITALS: BP 107/66
[2018-03-11] MEDS ORDERED: VANCOMYCIN 1250MG in DEXTROSE 5% WATER 250ML IV SCH (20:00)
[2018-03-11] MEDS ORDERED: AMPICILLIN 2,000 MG in SODIUM CHLORIDE 0.9% 100 ML IV SCH (20:00)
[2018-03-11] MEDS: CEFTRIAXONE 2 G in DEXTROSE 5% WATER 50 ML IV SCH (20:55)
[2018-03-11] MEDS: AMPICILLIN 2,000 MG in SODIUM CHLORIDE 0.9% 100 ML IV SCH (22:06)
[2018-03-12] VITALS: BP 107/62
[2018-03-12] MEDS: IPRATROPIUM/ALBUTEROL 0.5-3(2.5)MG/3ML NEB HHN SCH ×6 (01:20→21:18)
[2018-03-12 04:00] VITALS: BP 110/72
[2018-03-12] MEDS: AMPICILLIN 2,000 MG in SODIUM CHLORIDE 0.9% 100 ML IV SCH ×2 (06:08→18:53)
[2018-03-12] MEDS: DILTIAZEM HCL 30MG TABLET PO SCH ×3 (06:08→22:00)
[2018-03-12] MEDS: BLOOD SUGAR DIAGNOSTIC STRIP TEST SCH ×4 (06:27→21:00)
[2018-03-12 06:58] LABS: BASOPHILS % 0.4 % (0.0-2.0); EOSINOPHILS % 0.4 % (0.0-5.0); HEMATOCRIT. 32.4 % (42.0-52.0); HEMOGLOBIN. 10.7 g/dL (14.0-18.0); LYMPHOCYTES % 14.6 % (20.0-50.0); MEAN CORPUSCULAR VOLUME 72.9 fL (80.0-94.0); MEAN PLATELET VOLUME 8.7 fl (7.4-10.4); MONOCYTES % 12.1 % (2.0-8.0); NEUTROPHILS % 72.5 % (40.0-76.0); PLATELET 147 x1000/uL (130-400); RED BLOOD CELL COUNT 4.44 mill/uL (4.7-6.1); RED CELL DISTRIBUTION WIDTH 17.5 % (11.6-14.6)
[2018-03-12 07:02] LABS: INR 1.6; PROTHROMBIN TIME 16.2 sec (9.1-11.1)
[2018-03-12] MEDS: CEFTRIAXONE 2 G in DEXTROSE 5% WATER 50 ML IV SCH (07:03)
[2018-03-12 07:09] LABS: CHLORIDE 98 mEq/L (98-107)
[2018-03-12] MEDS: INSULIN LISPRO 100 UNITS/ML SUBCUT SCH ×4 (07:50→22:13)
[2018-03-12 08:00] VITALS: BP 110/67
[2018-03-12] MEDS: PREGABALIN 25MG CAPSULE PO SCH ×3 (08:29→18:53)
[2018-03-12] MEDS: TAMSULOSIN HCL 0.4MG SR CAPSULE PO SCH (08:29)
[2018-03-12] MEDS: FINASTERIDE 5MG TABLET PO SCH (08:29)
[2018-03-12] MEDS: METFORMIN HCL 500MG TABLET PO SCH ×2 (08:29→18:52)
[2018-03-12] MEDS: HYDROCODONE/ACETAMINOPHEN 5/325MG TABLET PO PRN ×2 (08:44→14:24)
[2018-03-12] MEDS: CARVEDILOL 3.125 MG TABLET PO SCH ×2 (08:44→22:09)
[2018-03-12] MEDS ORDERED: FAMOTIDINE 20MG TABLET PO SCH (09:00)
[2018-03-12] MEDS ORDERED: POTASSIUM CHLORIDE 20MEQ TABLET SR PO NR (11:15)
[2018-03-12 12:00] VITALS: BP 103/65
[2018-03-12] MEDS ORDERED: GENTAMICIN XX SCH (12:15)
[2018-03-12] MEDS ORDERED: MAGNESIUM 2 G PREMIX 50 ML IV NR (12:30)
[2018-03-12] MEDS: ENOXAPARIN 80MG/0.8ML SYR SUBCUT SCH (13:18)
[2018-03-12] MEDS: SODIUM CHLORIDE 0.9% 1,000 ML IV SCH (14:25)
[2018-03-12] MEDS: SODIUM CHLORIDE 0.9% IV SCH ×2 (15:36→22:12)
[2018-03-12] MEDS: GENTAMICIN SULFATE IV SCH ×2 (15:36→22:12)
[2018-03-12 16:00] VITALS: BP 109/63
[2018-03-12 20:00] VITALS: BP 97/56
[2018-03-12] MEDS ORDERED: VANCOMYCIN 1 G PREMIX 200 ML IV SCH (21:00)
[2018-03-12] MEDS: FAMOTIDINE 20MG TABLET PO SCH (22:12)
[2018-03-13] VITALS: BP 115/62
[2018-03-13] MEDS: IPRATROPIUM/ALBUTEROL 0.5-3(2.5)MG/3ML NEB HHN SCH ×6 (00:17→21:58)
[2018-03-13] MEDS: ENOXAPARIN 80MG/0.8ML SYR SUBCUT SCH ×2 (00:58→12:35)
[2018-03-13] MEDS: SODIUM CHLORIDE 0.9% 1,000 ML IV SCH ×2 (00:59→17:45)
[2018-03-13] MEDS: AMPICILLIN 2,000 MG in SODIUM CHLORIDE 0.9% 100 ML IV SCH ×4 (00:59→17:44)
[2018-03-13] MEDS: HYDROCODONE/ACETAMINOPHEN 5/325MG TABLET PO PRN ×3 (01:06→20:07)
[2018-03-13 04:00] VITALS: BP 120/60
[2018-03-13 06:42] LABS: BASOPHILS % 0.3 % (0.0-2.0); EOSINOPHILS % 0.5 % (0.0-5.0); HEMATOCRIT. 29.2 % (42.0-52.0); HEMOGLOBIN. 9.6 g/dL (14.0-18.0); MEAN CORPUSCULAR HEMOGLOBIN 24.3 pg (28.0-32.0); MEAN CORPUSCULAR VOLUME 73.7 fL (80.0-94.0); MEAN PLATELET VOLUME 8.5 fl (7.4-10.4); MONOCYTES % 9.9 % (2.0-8.0); NEUTROPHILS % 74.3 % (40.0-76.0); PLATELET 147 x1000/uL (130-400); RED BLOOD CELL COUNT 3.96 mill/uL (4.7-6.1)
[2018-03-13] MEDS: BLOOD SUGAR DIAGNOSTIC STRIP TEST SCH ×4 (06:51→21:00)
[2018-03-13] MEDS: SODIUM CHLORIDE 0.9% IV SCH (06:51)
[2018-03-13] MEDS: GENTAMICIN SULFATE IV SCH (06:51)
[2018-03-13] MEDS: DILTIAZEM HCL 30MG TABLET PO SCH ×3 (06:51→22:21)
[2018-03-13 06:57] LABS: CHLORIDE 104 mEq/L (98-107)
[2018-03-13 07:12] LABS: GENTAMICIN RANDOM 1.5 ug/mL
[2018-03-13 07:15] LABS: PROTHROMBIN TIME 20.1 sec (9.1-11.1)
[2018-03-13] MEDS: INSULIN LISPRO 100 UNITS/ML SUBCUT SCH ×4 (07:50→21:00)
[2018-03-13 08:00] VITALS: BP 121/74
[2018-03-13] MEDS: FINASTERIDE 5MG TABLET PO SCH (09:14)
[2018-03-13] MEDS: PREGABALIN 25MG CAPSULE PO SCH ×3 (09:14→17:44)
[2018-03-13] MEDS: FAMOTIDINE 20MG TABLET PO SCH ×2 (09:15→20:07)
[2018-03-13] MEDS: TAMSULOSIN HCL 0.4MG SR CAPSULE PO SCH (09:15)
[2018-03-13] MEDS: METFORMIN HCL 500MG TABLET PO SCH ×2 (09:15→17:44)
[2018-03-13] MEDS: CARVEDILOL 3.125 MG TABLET PO SCH ×2 (09:15→20:06)
[2018-03-13 11:53] VITALS: BP 123/63
[2018-03-13 15:41] VITALS: BP 91/46
[2018-03-13] MEDS: GENTAMICIN 80MG PREMIX 100 ML IV SCH (17:44)
[2018-03-13] MEDS ORDERED: WARFARIN SODIUM 5MG TABLET PO SCH (18:00)
[2018-03-13] MEDS ORDERED: LORAZEPAM 0.5MG TABLET PO PRN (20:00)
[2018-03-13 20:48] VITALS: BP 118/62
[2018-03-14 00:12] VITALS: BP 118/56
[2018-03-14] MEDS: ENOXAPARIN 80MG/0.8ML SYR SUBCUT SCH ×2 (01:05→12:49)
[2018-03-14] MEDS: SODIUM CHLORIDE 0.9% 1,000 ML IV SCH (01:05)
[2018-03-14] MEDS: AMPICILLIN 2,000 MG in SODIUM CHLORIDE 0.9% 100 ML IV SCH ×4 (01:05→21:17)
[2018-03-14] MEDS: IPRATROPIUM/ALBUTEROL 0.5-3(2.5)MG/3ML NEB HHN SCH ×5 (02:36→22:04)
[2018-03-14 04:00] VITALS: BP 125/77
[2018-03-14] MEDS: DILTIAZEM HCL 30MG TABLET PO SCH ×3 (05:14→21:15)
[2018-03-14] MEDS: GENTAMICIN 80MG PREMIX 100 ML IV SCH ×2 (05:41→17:34)
[2018-03-14] MEDS: BLOOD SUGAR DIAGNOSTIC STRIP TEST SCH ×4 (06:53→21:00)
[2018-03-14] MEDS: INSULIN LISPRO 100 UNITS/ML SUBCUT SCH ×4 (06:53→21:00)
[2018-03-14] MEDS: METFORMIN HCL 500MG TABLET PO SCH ×2 (07:50→17:35)
[2018-03-14 08:00] VITALS: BP 142/88
[2018-03-14 08:37] LABS: BASOPHILS % 0.3 % (0.0-2.0); EOSINOPHILS % 0.6 % (0.0-5.0); HEMOGLOBIN. 9.3 g/dL (14.0-18.0); LYMPHOCYTES % 12.3 % (20.0-50.0); MEAN CORPUSCULAR HEMOGLOBIN 24.5 pg (28.0-32.0); MEAN PLATELET VOLUME 8.4 fl (7.4-10.4); MONOCYTES % 8.2 % (2.0-8.0); NEUTROPHILS % 78.6 % (40.0-76.0); PLATELET 157 x1000/uL (130-400); RED BLOOD CELL COUNT 3.78 mill/uL (4.7-6.1); RED CELL DISTRIBUTION WIDTH 17.6 % (11.6-14.6)
[2018-03-14] MEDS: CARVEDILOL 3.125 MG TABLET PO SCH ×2 (08:51→21:15)
[2018-03-14] MEDS: PREGABALIN 25MG CAPSULE PO SCH ×3 (08:52→19:42)
[2018-03-14] MEDS: FINASTERIDE 5MG TABLET PO SCH (08:52)
[2018-03-14] MEDS: FAMOTIDINE 20MG TABLET PO SCH ×2 (08:52→21:15)
[2018-03-14] MEDS: TAMSULOSIN HCL 0.4MG SR CAPSULE PO SCH (08:52)
[2018-03-14 08:57] LABS: CHLORIDE 106 mEq/L (98-107)
[2018-03-14 09:10] LABS: PROTHROMBIN TIME 19.6 sec (9.1-11.1)
[2018-03-14 12:00] VITALS: BP 143/86
[2018-03-14] MEDS: HYDROCODONE/ACETAMINOPHEN 5/325MG TABLET PO PRN ×2 (12:55→21:14)
[2018-03-14] MEDS ORDERED: MAGNESIUM 1 G PREMIX 100 ML IV NR (15:00)
[2018-03-14 16:00] VITALS: BP 140/77
[2018-03-14] MEDS ORDERED: WARFARIN SODIUM 3MG TABLET PO NR (18:00)
[2018-03-14 20:41] VITALS: BP 138/62
[2018-03-15] VITALS (8 sets, daily range): BP systolic 112–158; BP diastolic 59–81
[2018-03-15] MEDS: ENOXAPARIN 80MG/0.8ML SYR SUBCUT SCH ×2 (00:49→12:00)
[2018-03-15] MEDS: AMPICILLIN 2,000 MG in SODIUM CHLORIDE 0.9% 100 ML IV SCH ×3 (01:23→13:47)
[2018-03-15] MEDS: HYDROCODONE/ACETAMINOPHEN 5/325MG TABLET PO PRN ×2 (01:23→16:02)
[2018-03-15] MEDS: IPRATROPIUM/ALBUTEROL 0.5-3(2.5)MG/3ML NEB HHN SCH ×6 (02:36→19:52)
[2018-03-15] MEDS: DILTIAZEM HCL 30MG TABLET PO SCH ×3 (05:23→21:55)
[2018-03-15] MEDS: BLOOD SUGAR DIAGNOSTIC STRIP TEST SCH ×4 (05:27→21:58)
[2018-03-15] MEDS: INSULIN LISPRO 100 UNITS/ML SUBCUT SCH ×4 (05:27→21:00)
[2018-03-15] MEDS: GENTAMICIN 80MG PREMIX 100 ML IV SCH ×2 (05:28→18:20)
[2018-03-15] MEDS: SODIUM CHLORIDE 0.9% 1,000 ML IV SCH ×2 (05:29→08:40)
[2018-03-15 06:13] LABS: PROTHROMBIN TIME 20.2 sec (9.1-11.1)
[2018-03-15 06:17] LABS: BASOPHILS % 0.3 % (0.0-2.0); EOSINOPHILS % 1.1 % (0.0-5.0); HEMATOCRIT. 27.1 % (42.0-52.0); HEMOGLOBIN. 9.1 g/dL (14.0-18.0); LYMPHOCYTES % 15.5 % (20.0-50.0); MEAN CORPUSCULAR HEMOGLOBIN 24.6 pg (28.0-32.0); MEAN CORPUSCULAR VOLUME 73.7 fL (80.0-94.0); MEAN PLATELET VOLUME 8.3 fl (7.4-10.4); MONOCYTES % 11.3 % (2.0-8.0); NEUTROPHILS % 71.8 % (40.0-76.0); PLATELET 155 x1000/uL (130-400); RED BLOOD CELL COUNT 3.68 mill/uL (4.7-6.1); RED CELL DISTRIBUTION WIDTH 17.5 % (11.6-14.6)
[2018-03-15 06:26] LABS: CHLORIDE 106 mEq/L (98-107)
[2018-03-15 06:58] LABS: GENTAMICIN RANDOM 0.7 ug/mL
[2018-03-15] MEDS: METFORMIN HCL 500MG TABLET PO SCH ×2 (07:50→18:40)
[2018-03-15] MEDS: PREGABALIN 25MG CAPSULE PO SCH ×3 (09:00→18:19)
[2018-03-15] MEDS: FAMOTIDINE 20MG TABLET PO SCH ×2 (09:00→21:55)
[2018-03-15] MEDS: TAMSULOSIN HCL 0.4MG SR CAPSULE PO SCH (09:00)
[2018-03-15] MEDS: CARVEDILOL 3.125 MG TABLET PO SCH ×2 (09:00→21:54)
[2018-03-15] MEDS: FINASTERIDE 5MG TABLET PO SCH (09:00)
[2018-03-15] MEDS ORDERED: POTASSIUM CHLORIDE 20MEQ TABLET SR PO NR (12:45)
[2018-03-15] MEDS ORDERED: LIDOCAINE HCL 2% JELLY 5ML ONE (12:53)
[2018-03-15] MEDS ORDERED: TETRACAINE/BENZOCAINE/BUTAMBEN 20 GM SPRAY MM ONE (12:53)
[2018-03-15] MEDS ORDERED: FENTANYL CITRATE/PF 50MCG/ML 2ML VIAL ONE (13:07)
[2018-03-15] MEDS ORDERED: MIDAZOLAM HCL 5 MG/5 ML VIAL ONE (13:07)
[2018-03-15] MEDS ORDERED: MAGNESIUM GLUCONATE 500MG TABLET PO SCH (15:00)
[2018-03-15] MEDS ORDERED: WARFARIN SODIUM 3MG TABLET PO SCH (18:00)
[2018-03-15] MEDS ORDERED: GENTAMICIN 80MG PREMIX 100 ML IV SCH ×2 (18:00→21:00)
[2018-03-15] MEDS ORDERED: AMPICILLIN 2,000 MG in SODIUM CHLORIDE 0.9% 100 ML IV SCH (21:00)
== END 2018-03-15 22:20 | DRG 871 ==
LOC: ER 08:52 → 6WST 13:27 → EDBEDREQ 13:37 → ENRESERV 20:41
PROVIDERS: ADMIT Internal Medicine; ATTEND Internal Medicine
PROC: 02HV33Z Insertion of Infusion Device into Superior Vena Cava, Percutaneous Approach (ICD-10-PCS; principal; 2018-03-13)
PROC: B548ZZA Ultrasonography of Superior Vena Cava, Guidance (ICD-10-PCS; 2018-03-13)
PROC: B246ZZ4 Ultrasonography of Right and Left Heart, Transesophageal (ICD-10-PCS; 2018-03-13)
DX: A41.81 Sepsis due to Enterococcus (principal); I50.33 Acute on chronic diastolic (congestive) heart failure; D68.59 Other primary thrombophilia; N17.9 Acute kidney failure, unspecified; I13.0 Hypertensive heart and chronic kidney disease with heart failure and stage 1 through stage 4 chronic kidney disease, or unspecified chronic kidney disease; E87.1 Hypo-osmolality and hyponatremia; M94.0 Chondrocostal junction syndrome [Tietze]; E11.22 Type 2 diabetes mellitus with diabetic chronic kidney disease; E66.9 Obesity, unspecified; Z79.01 Long term (current) use of anticoagulants; Z86.73 Personal history of transient ischemic attack (TIA), and cerebral infarction without residual deficits; N18.9 Chronic kidney disease, unspecified; M47.817 Spondylosis without myelopathy or radiculopathy, lumbosacral region; K29.50 Unspecified chronic gastritis without bleeding; K29.00 Acute gastritis without bleeding; D63.8 Anemia in other chronic diseases classified elsewhere; F41.9 Anxiety disorder, unspecified; F48.8 Other specified nonpsychotic mental disorders; E11.65 Type 2 diabetes mellitus with hyperglycemia; F03.90 Unspecified dementia, unspecified severity, without behavioral disturbance, psychotic disturbance, mood disturbance, and anxiety; D64.9 Anemia, unspecified; D69.6 Thrombocytopenia, unspecified; E78.00 Pure hypercholesterolemia, unspecified; E78.5 Hyperlipidemia, unspecified; G89.29 Other chronic pain; J44.9 Chronic obstructive pulmonary disease, unspecified; K21.9 Gastro-esophageal reflux disease without esophagitis; M47.816 Spondylosis without myelopathy or radiculopathy, lumbar region; N40.0 Benign prostatic hyperplasia without lower urinary tract symptoms; R29.6 Repeated falls; M48.061 Spinal stenosis, lumbar region without neurogenic claudication; M51.36 Other intervertebral disc degeneration, lumbar region; I48.2 Chronic atrial fibrillation; W18.39XA Other fall on same level, initial encounter; Y93.89 Activity, other specified; Z79.4 Long term (current) use of insulin; Z82.49 Family history of ischemic heart disease and other diseases of the circulatory system; Z95.2 Presence of prosthetic heart valve; Z90.49 Acquired absence of other specified parts of digestive tract; Z79.899 Other long term (current) drug therapy; Z83.3 Family history of diabetes mellitus; Z95.0 Presence of cardiac pacemaker; Z68.27 Body mass index [BMI] 27.0-27.9, adult; Y92.89 Other specified places as the place of occurrence of the external cause; Y99.8 Other external cause status
CPT/HCPCS: 36415; 36569; 71045; 72100; 72131; 72170; 74018; 76937; 77001; 80048; 80061; 80170; 80202; 82962; 83036; 83735; 83880; 84145; 84153; 84439; 84443; 84484; 85027; 85651; 86140; 87077; 87186; 87804; 93005; 93306; 93312; 93880; 94640; 96372; 96374; 96375; 97116; 97162; 99285; C1725; C1893; C9113; J0290; J0696; J1160; J1580; J1650; J1815; J2250; J2270; J2405; J2543; J3010; J3370; J3430; J3475; J7030; J7040; J7050; J7060; J7620; G0103

== ENCOUNTER 2018-05-01 10:06 | Inpatient (IN) | payer MEDICARE, MEDICAID ==
[~2018-05-01] VITALS: Ht 172.7 cm; Wt 65.8 kg
[~2018-05-01 10:06] MED LIST changes: +CARV12.545 PO; +INSNPH SUBCUT; +LYR25 MT; +POTA-79 PO; +SULF500T8 PO; +WARF-53 PO
[2018-05-01] MEDS ORDERED: MORPHINE SULFATE 4 MG/ML CPJ (NOT FOR IM USE) IV ONE (11:00)
[2018-05-01] MEDS ORDERED: ONDANSETRON HCL 4MG/2ML INJ IV ONE (11:00)
[2018-05-01 11:13] LABS: HEMATOCRIT. 28.8 % (42.0-52.0); HEMOGLOBIN. 9.5 g/dL (14.0-18.0); MEAN CORPUSCULAR HEMOGLOBIN 24.3 pg (28.0-32.0); MEAN CORPUSCULAR VOLUME 73.5 fL (80.0-94.0); MEAN PLATELET VOLUME 8.1 fl (7.4-10.4); PLATELET 194 x1000/uL (130-400); RED BLOOD CELL COUNT 3.92 mill/uL (4.7-6.1); RED CELL DISTRIBUTION WIDTH 16.2 % (11.6-14.6)
[2018-05-01 11:19] LABS: CHLORIDE 92 mEq/L (98-107)
[2018-05-01 11:29] LABS: INR 1.3; PROTHROMBIN TIME 13.2 sec (9.1-11.1)
[2018-05-01 11:46] LABS: PLATELET ESTIMATE NORMAL
[2018-05-01] MEDS ORDERED: IOHEXOL-300 100 ML BOTTLE ONE (12:15)
[2018-05-01] MEDS ORDERED: SODIUM CHLORIDE 0.9% 1,000 ML IV ONE (14:00)
[2018-05-01] MEDS ORDERED: ENOXAPARIN 80MG/0.8ML SYR SUBCUT ONE (14:15)
[2018-05-01 14:36] LABS: CLARITY URINE CLEAR (CLEAR); COLOR URINE YELLOW (YELLOW); KETONES URINE NEGATIVE (NEGATIVE); LEUKOCYTE ESTERASE URINE NEGATIVE (NEGATIVE); NITRITE URINE NEGATIVE (NEGATIVE); OCCULT BLOOD URINE NEGATIVE (NEGATIVE); PH URINE 7.5 (4.5-8.0); PROTEIN URINE NEGATIVE (NEGATIVE); SPECIFIC GRAVITY URINE 1.063 (1.005-1.030)
[2018-05-01] MEDS ORDERED: ZOLPIDEM TARTRATE 5MG TABLET PO PRN (17:45)
[2018-05-01] MEDS ORDERED: ACETAMINOPHEN 325MG TABLET PO PRN (17:45)
[2018-05-01] MEDS ORDERED: DOCUSATE SODIUM 250MG CAPSULE PO PRN (17:45)
[2018-05-01] MEDS ORDERED: ONDANSETRON HCL 4MG/2ML INJ IV PRN (17:45)
[2018-05-01] MEDS ORDERED: DEXTROSE 50% WATER 50ML SYRINGE IV PRN (17:45)
[2018-05-01] MEDS: INSULIN LISPRO 100 UNITS/ML SUBCUT SCH ×2 (19:11→21:00)
[2018-05-01 20:00] VITALS: BP 126/72
[2018-05-01 20:28] VITALS: BP 126/72
[2018-05-01] MEDS: BLOOD SUGAR DIAGNOSTIC STRIP TEST SCH (21:00)
[2018-05-01] MEDS: ATORVASTATIN CALCIUM 10MG TABLET PO SCH (22:00)
[2018-05-01] MEDS: CARVEDILOL 12.5MG TABLET PO SCH (22:00)
[2018-05-01] MEDS: POTASSIUM CHLORIDE 20MEQ TABLET SR PO SCH (22:00)
[2018-05-01] MEDS: DILTIAZEM HCL 180MG CAPSULE CD 24HR PO SCH (22:00)
[2018-05-01] MEDS: ENOXAPARIN 80MG/0.8ML SYR SUBCUT SCH (22:03)
[2018-05-01] MEDS: MORPHINE SULFATE 4 MG/ML CPJ (NOT FOR IM USE) IV PRN (22:03)
[2018-05-02] VITALS: BP 96/63
[2018-05-02] MEDS ORDERED: DOCU250C19 PO (02:15)
[2018-05-02] MEDS ORDERED: MELO-104 PO (02:15)
[2018-05-02] MEDS ORDERED: NOVOLIN R SQ (02:15)
[2018-05-02] MEDS ORDERED: APIX5TAB PO (02:15)
[2018-05-02] MEDS ORDERED: CARV3.1242 PO (02:15)
[2018-05-02] MEDS ORDERED: NOVO (02:15)
[2018-05-02] MEDS ORDERED: [UNRECOGNIZED DRUG - OTHER] PO (02:15)
[2018-05-02] MEDS ORDERED: ACET-2708 PO (02:15)
[2018-05-02 04:00] VITALS: BP 123/69
[2018-05-02 06:39] LABS: BASOPHILS % 0.2 % (0.0-2.0); EOSINOPHILS % 0.3 % (0.0-5.0); HEMATOCRIT. 26.2 % (42.0-52.0); HEMOGLOBIN. 8.8 g/dL (14.0-18.0); LYMPHOCYTES % 10.7 % (20.0-50.0); MEAN CORPUSCULAR HEMOGLOBIN 24.6 pg (28.0-32.0); MEAN CORPUSCULAR VOLUME 73.5 fL (80.0-94.0); MEAN PLATELET VOLUME 8.5 fl (7.4-10.4); MONOCYTES % 10.7 % (2.0-8.0); NEUTROPHILS % 78.1 % (40.0-76.0); PLATELET 170 x1000/uL (130-400); RED BLOOD CELL COUNT 3.56 mill/uL (4.7-6.1); RED CELL DISTRIBUTION WIDTH 16.3 % (11.6-14.6)
[2018-05-02] MEDS: OMEPRAZOLE 20MG CAPSULE EXTENDED RELEASE PO SCH (06:58)
[2018-05-02] MEDS: BLOOD SUGAR DIAGNOSTIC STRIP TEST SCH ×4 (06:59→20:45)
[2018-05-02] MEDS: INSULIN LISPRO 100 UNITS/ML SUBCUT SCH ×4 (07:50→20:46)
[2018-05-02 07:52] LABS: CHLORIDE 94 mEq/L (98-107)
[2018-05-02 08:00] VITALS: BP 123/61
[2018-05-02] MEDS: DILTIAZEM HCL 180MG CAPSULE CD 24HR PO SCH (09:36)
[2018-05-02] MEDS: TAMSULOSIN HCL 0.4MG SR CAPSULE PO SCH (09:36)
[2018-05-02] MEDS: CARVEDILOL 12.5MG TABLET PO SCH ×2 (09:37→20:45)
[2018-05-02] MEDS: FERROUS SULFATE 325MG TABLET PO SCH (09:37)
[2018-05-02] MEDS: FUROSEMIDE 20MG TABLET PO SCH (09:37)
[2018-05-02] MEDS: POTASSIUM CHLORIDE 20MEQ TABLET SR PO SCH (09:37)
[2018-05-02] MEDS: ENOXAPARIN 80MG/0.8ML SYR SUBCUT SCH ×2 (09:38→20:44)
[2018-05-02 12:00] VITALS: BP 116/63
[2018-05-02] MEDS ORDERED: LACTULOSE 20G/30ML UDC PO NR (12:00)
[2018-05-02 13:00] LABS: INR 1.3; PROTHROMBIN TIME 12.7 sec (9.1-11.1)
[2018-05-02 16:00] VITALS: BP 115/71
[2018-05-02] MEDS: MORPHINE SULFATE 4 MG/ML CPJ (NOT FOR IM USE) IV PRN (16:27)
[2018-05-02] MEDS ORDERED: WARFARIN SODIUM 5MG TABLET PO SCH (18:00)
[2018-05-02 20:15] VITALS: BP 116/69
[2018-05-02] MEDS: ATORVASTATIN CALCIUM 10MG TABLET PO SCH (20:44)
[2018-05-03] VITALS: BP 135/75
[2018-05-03 04:00] VITALS: BP 121/65
[2018-05-03 06:16] LABS: INR 1.3; PROTHROMBIN TIME 12.8 sec (9.1-11.1)
[2018-05-03] MEDS: BLOOD SUGAR DIAGNOSTIC STRIP TEST SCH ×4 (06:21→20:57)
[2018-05-03] MEDS: OMEPRAZOLE 20MG CAPSULE EXTENDED RELEASE PO SCH (06:21)
[2018-05-03 06:31] LABS: BASOPHILS % 0.3 % (0.0-2.0); HEMATOCRIT. 28.6 % (42.0-52.0); HEMOGLOBIN. 9.5 g/dL (14.0-18.0); LYMPHOCYTES % 7.5 % (20.0-50.0); MEAN CORPUSCULAR HEMOGLOBIN 24.5 pg (28.0-32.0); MEAN CORPUSCULAR VOLUME 73.9 fL (80.0-94.0); MEAN PLATELET VOLUME 8.7 fl (7.4-10.4); MONOCYTES % 6.7 % (2.0-8.0); NEUTROPHILS % 85.5 % (40.0-76.0); PLATELET 193 x1000/uL (130-400); RED BLOOD CELL COUNT 3.87 mill/uL (4.7-6.1); RED CELL DISTRIBUTION WIDTH 16.5 % (11.6-14.6)
[2018-05-03 07:38] LABS: CHLORIDE 94 mEq/L (98-107)
[2018-05-03] MEDS: INSULIN LISPRO 100 UNITS/ML SUBCUT SCH ×4 (07:50→20:56)
[2018-05-03 08:00] VITALS: BP 140/77
[2018-05-03] MEDS: FERROUS SULFATE 325MG TABLET PO SCH (11:57)
[2018-05-03] MEDS: POTASSIUM CHLORIDE 20MEQ TABLET SR PO SCH (11:57)
[2018-05-03] MEDS: TAMSULOSIN HCL 0.4MG SR CAPSULE PO SCH (11:58)
[2018-05-03] MEDS: CARVEDILOL 12.5MG TABLET PO SCH ×2 (11:58→20:58)
[2018-05-03] MEDS: FUROSEMIDE 20MG TABLET PO SCH (11:59)
[2018-05-03] MEDS: DILTIAZEM HCL 180MG CAPSULE CD 24HR PO SCH (11:59)
[2018-05-03 12:00] VITALS: BP 145/83
[2018-05-03] MEDS: ENOXAPARIN 80MG/0.8ML SYR SUBCUT SCH ×2 (12:00→20:58)
[2018-05-03] MEDS: MORPHINE SULFATE 4 MG/ML CPJ (NOT FOR IM USE) IV PRN (12:20)
[2018-05-03 16:00] VITALS: BP 134/73
[2018-05-03] MEDS ORDERED: WARFARIN SODIUM 5MG TABLET PO SCH (18:00)
[2018-05-03 20:33] VITALS: BP 129/62
[2018-05-03] MEDS: ATORVASTATIN CALCIUM 10MG TABLET PO SCH (20:58)
[2018-05-03] MEDS: DILTIAZEM HCL 60MG TABLET PO SCH (23:22)
[2018-05-04] VITALS: BP 115/61
[2018-05-04 04:00] VITALS: BP 108/51
[2018-05-04] MEDS: DILTIAZEM HCL 60MG TABLET PO SCH ×3 (06:00→17:24)
[2018-05-04] MEDS: BLOOD SUGAR DIAGNOSTIC STRIP TEST SCH ×3 (06:26→17:23)
[2018-05-04 06:28] LABS: INR 1.4; PROTHROMBIN TIME 13.9 sec (9.1-11.1)
[2018-05-04 06:42] LABS: CHLORIDE 95 mEq/L (98-107); HEMATOCRIT. 27.3 % (42.0-52.0); HEMOGLOBIN. 9.1 g/dL (14.0-18.0); MEAN CORPUSCULAR HEMOGLOBIN 24.3 pg (28.0-32.0); MEAN CORPUSCULAR VOLUME 72.8 fL (80.0-94.0); MEAN PLATELET VOLUME 8.6 fl (7.4-10.4); PLATELET 202 x1000/uL (130-400); RED BLOOD CELL COUNT 3.75 mill/uL (4.7-6.1); RED CELL DISTRIBUTION WIDTH 16.3 % (11.6-14.6)
[2018-05-04 08:22] VITALS: BP 134/78
[2018-05-04] MEDS: TAMSULOSIN HCL 0.4MG SR CAPSULE PO SCH (08:24)
[2018-05-04] MEDS: FUROSEMIDE 20MG TABLET PO SCH (08:24)
[2018-05-04] MEDS: POTASSIUM CHLORIDE 20MEQ TABLET SR PO SCH (08:24)
[2018-05-04] MEDS: CARVEDILOL 12.5MG TABLET PO SCH (08:24)
[2018-05-04] MEDS: FERROUS SULFATE 325MG TABLET PO SCH (08:24)
[2018-05-04] MEDS: ENOXAPARIN 80MG/0.8ML SYR SUBCUT SCH (08:29)
[2018-05-04] MEDS: INSULIN LISPRO 100 UNITS/ML SUBCUT SCH ×3 (08:32→17:32)
[2018-05-04] MEDS ORDERED: FAMOTIDINE 20MG TABLET PO SCH (09:00)
[2018-05-04] MEDS ORDERED: IPRATROPIUM/ALBUTEROL 0.5-3(2.5)MG/3ML NEB HHN PRN (09:45)
[2018-05-04 10:03] LABS: PLATELET ESTIMATE NORMAL
[2018-05-04 11:57] VITALS: BP 124/60
[2018-05-04] MEDS: MORPHINE SULFATE 4 MG/ML CPJ (NOT FOR IM USE) IV PRN ×2 (11:59→18:08)
[2018-05-04] MEDS ORDERED: MAGNESIUM 2 G PREMIX 50 ML IV NR (15:00)
[2018-05-04 16:00] VITALS: BP 138/75
[2018-05-04 20:00] VITALS: BP 117/68
[2018-05-04] MEDS ORDERED: APIXABAN 5 MG TABLET PO SCH (21:00)
== END 2018-05-04 21:03 | disposition home or self-care (01) | DRG 391 ==
LOC: ER 10:28 → 6WST 14:13 → EDBEDREQSVC 14:41 → ENRESERV 16:58
PROVIDERS: ADMIT Internal Medicine; ATTEND Internal Medicine
DX: K29.70 Gastritis, unspecified, without bleeding (principal); I50.23 Acute on chronic systolic (congestive) heart failure; E87.1 Hypo-osmolality and hyponatremia; I42.9 Cardiomyopathy, unspecified; E44.1 Mild protein-calorie malnutrition; D68.9 Coagulation defect, unspecified; I48.91 Unspecified atrial fibrillation; E87.6 Hypokalemia; E78.5 Hyperlipidemia, unspecified; E11.40 Type 2 diabetes mellitus with diabetic neuropathy, unspecified; I11.0 Hypertensive heart disease with heart failure; M19.90 Unspecified osteoarthritis, unspecified site; D64.9 Anemia, unspecified; K59.00 Constipation, unspecified; E87.8 Other disorders of electrolyte and fluid balance, not elsewhere classified; F03.90 Unspecified dementia, unspecified severity, without behavioral disturbance, psychotic disturbance, mood disturbance, and anxiety; J45.909 Unspecified asthma, uncomplicated; E78.00 Pure hypercholesterolemia, unspecified; Z79.01 Long term (current) use of anticoagulants; Z86.73 Personal history of transient ischemic attack (TIA), and cerebral infarction without residual deficits; Z90.49 Acquired absence of other specified parts of digestive tract; Z95.0 Presence of cardiac pacemaker; Z95.3 Presence of xenogenic heart valve; Z79.4 Long term (current) use of insulin; Z68.22 Body mass index [BMI] 22.0-22.9, adult
CPT/HCPCS: 36415; 71045; 74177; 80048; 82962; 83735; 84145; 84484; 93005; 96361; 96374; 96375; 97116; 97162; 99285; J1650; J1815; J2270; J2405; J3475; J7050; J7620; Q9967